=== PATIENT | male | born 1960 | race Native Hawaiian/Other Pacific Islander ===

== ENCOUNTER 2016-12-10 11:33 | Emergency (ER) | payer OTHER ==
[2016-12-10] MEDS ORDERED: BUPIVACAINE 0.5% PF 30 ML VIAL SUBQ STA (12:26)
[2016-12-10] MEDS ORDERED: BUPIVACAINE 0.5% PF 30 ML VIAL ONE (12:30)
--- NOTE | 2016-12-10 12:36 | ED Physician Documentation ---
History of Present Illness - Stated complaint Stated Complaint: LT TOENAIL PX,REDNESS - Chief complaint Chief Complaint: Ext Problem - History obtained from History obtained from: Patient - History of Present Illness Timing: How many weeks ago (several weeks) Pain level max: 4 Pain level now: 3 Improved by: soaking the toe Worsened by: walking - Additonal information Additional information: states L great toe - ingrown toenail with recurrent infections. Review of Systems Constitutional: denies: Fever, Chills Skin: denies: Rash PD PAST MEDICAL HISTORY - Past Medical History Cardiovascular: High cholesterol, Atrial fibrillation - Past Surgical History Past Surgical History: No - Present Medications Home Medications: Ambulatory Orders Medication Instructions Recorded Confirmed Aspirin Chewable [St Zack 1 tab PO DAILY 12/10/16 12/10/16 Aspirin] Atorvastatin [Lipitor] 4 tab PO DAILY 12/10/16 12/10/16 Fexofenadine HCl [Radha Allergy] 60 mg PO DAILY 12/10/16 12/10/16 Fluticasone [Flonase] 1 spray TANYA PRN PRN 12/10/16 12/10/16 Sotalol HCl [Sotalol] 2 tab PO DAILY 12/10/16 12/10/16 - Allergies Allergies/Adverse Reactions: Allergies Allergy/AdvReac Type Severity Reaction Status Date / Time No Known Drug Allergies Allergy Verified 12/10/16 11:40 - Social History Does the pt smoke?: No Smoking Status: Never smoker Does the pt drink ETOH?: Yes Does the pt have substance abuse?: No - Immunizations Immunizations are current?: Yes - POLST Patient has POLST: No PD ED PE NORMAL - Vitals Vital signs reviewed: Yes - General General: Alert and oriented X 3, No acute distress - Extremities Extremities: Other (L great toe - ingrown medial toenail with swelling and pain. ) - Neuro Neuro: Alert and oriented X 3 - Psych Psych: Normal mood, Normal affect Results - Vitals Vitals: Vital Signs - 24 hr 12/10/16 12/10/16 11:36 13:00 Temperature 36.6 C Heart Rate 68 78 Respiratory 15 14 Rate Blood Pressure 134/81 H 128/76 O2 Saturation 96 98 Oxygen O2 Source Room air Procedures - General procedure General procedure: Verbal consent obtained from the patient. The right great toe was anesthetized with 0.5% Marcaine with excellent anesthesia achieved. After this the toe was scrubbed with chlorhexidine, the lateral nail fold was then elevated and the nail removed. Approximately one fourth of the toenail was removed including the nail matrix. There was no purulent material drained. Patient tolerated well. Xeroform dressing applied. PD MEDICAL DECISION MAKING - ED course Complexity details: re-evaluated patient, considered differential, d/w patient, d/w family ED course: Patient is a 56-year-old male who presents to the emergency department with an ingrown right toenail. This was excised and removed. Tolerated well. Warnings of infection and instructions on wound care given at bedside. Also counseled on how to minimize scarring. Patient and family counseled regarding signs and symptoms for which I believe and urgent re-evaluation would be necessary. Patient with good understanding of and agreement to plan and is comfortable going home at this time This document was made in part using voice recognition software. While efforts are made to proofread this document, sound alike and grammatical errors may occur. No evidence of infection Departure - Departure Disposition: 01 Home, Self Care Clinical Impression: Ingrown toenail without infection Condition: Good Instructions: ED Ingrown Toenail Excised, ED Ingrown Toenail No Infec Home Tx Follow-Up: Corey Ray DO [Primary Care Provider] - Within 1 week Comments: Return if you worsen. Keep the wound clean. Change your socks 2-3 times daily when working. Keep the wound covered for the next week. Discharge Date/Time: 12/10/16 13:10
[2016-12-10 13:16] VITALS: BP 128/76
== END 2016-12-10 13:10 | disposition home or self-care (01) ==
LOC: ED 11:33
DX: L60.0 Ingrowing nail (principal); Z79.82 Long term (current) use of aspirin
CPT/HCPCS: 11760; 99283

== ENCOUNTER 2018-04-26 11:48 | Outpatient (CLI) | payer OTHER ==
--- NOTE | 2018-04-26 18:53 | MRI Report ---
Reason: CERVICALGIA Procedure Date: 04/26/2018 Accession Number: [id number] / [id number] Procedure: MRI - Cervical Spine W/O CPT Code: FULL RESULT: EXAM: MRI CERVICAL SPINE WITHOUT CONTRAST EXAM DATE: 04/26/2018 12:26 PM. CLINICAL HISTORY: Cervicalgia. COMPARISONS: MRI cervical spine 06/15/2011. TECHNIQUE: Multiplanar, multisequence T1-weighted and fluid-sensitive sequences of the cervical spine without contrast. Other: None. FINDINGS: Grade 1 retrolisthesis of C4 relative to C5 is present. There is some patchy edema involving the C4 and C5 vertebral bodies towards the right likely diskogenic in nature. These findings are stable. No abnormal T2 signal is present in the cervical spinal cord. C2-C3: No posterior disk protrusion. No stenosis. C3-C4: Posterior bulge of the annulus. Disk/osteophyte complex formation is seen involving the posterior lateral and extend the left foraminal margin of the disk on the right. Left uncovertebral joint spurring is seen. Left facet hypertrophy is present. Left foraminal stenosis is seen no central canal stenosis. C4-C5: Grade 1 retrolisthesis of C4 relative to C5 is present. A posterior protrusion of disk and osteophyte is seen. There is near complete effacement of ventral CSF space. Central canal measures 10-11 mm. Disk/osteophyte complex is seen involving the posterior lateral and foraminal margin of the disk on the right. There is uncovertebral joint spurring on the left. Right foraminal stenosis is present. This is stable. C5-C6: A minimal posterior protrusion of disk is seen. Disk/osteophyte complex formation is seen involving the posterior lateral and foraminal margin of the disk bilaterally. Bilateral foraminal stenosis greater on the left relative to the right is again seen. No central canal stenosis. Loss of disk space height is present. The degree of disk space height loss has increased. The right foraminal stenosis is new. The left foraminal stenosis is stable. C6-C7: A mild posterior disk protrusion is seen. Disk/osteophyte complex formation is seen involving the posterior lateral margin of the disk. Bilateral foraminal narrowing without overt foraminal stenosis is stable. C7-T1: No posterior disk protrusion. IMPRESSION: 1. Progression of degenerative disk disease and right uncovertebral joint spurring at C5-C6 with new right foraminal stenosis present on the current study. 2. The MRI of the cervical spine is otherwise unchanged. 3. Again seen is degenerative disk disease and osteophyte formation at C4-C5 with stable right foraminal stenosis. 4. There is stable left foraminal stenosis at C3-C4 due to facet hypertrophy and uncovertebral joint spurring. 5. Left foraminal stenosis at C5-C6 is stable. 6. No central canal stenosis is present. 7. No abnormal signal is present in the cervical spinal cord. RADIA
== END 2018-04-26 11:49 | disposition home or self-care (01) ==
LOC: DI 11:48
PROVIDERS: ATTEND Physician Assistant
DX: M50.221 Other cervical disc displacement at C4-C5 level (principal); M50.31 Other cervical disc degeneration, high cervical region; M48.02 Spinal stenosis, cervical region; M47.9 Spondylosis, unspecified; M43.12 Spondylolisthesis, cervical region
CPT/HCPCS: 72141

== ENCOUNTER 2023-11-22 14:42 | Outpatient (CLI) | payer OTHER ==
[2023-11-22 15:15] LABS: CREATININE 0.8 mg/dL (0.6-1.3)
[2023-11-22] MEDS ORDERED: GADOTERATE MEGLUMINE 10 MMOL/20 ML VIAL ONE (15:25)
[2023-11-22] MEDS ORDERED: GADOTERATE MEGLUMINE 5 MMOL/10 ML VIAL ONE (15:25)
[2023-11-22] MEDS: GADOTERATE MEGLUMINE 10 MMOL/20 ML VIAL IVP ONE (16:34)
--- NOTE | 2023-11-26 21:04 | MRI Report ---
PROCEDURE: IAC'S W/WO INDICATIONS: AYSMETRICAL HEARING LOSS CONTRAST: CLARISCAN 24.0 ML TECHNIQUE: Noncontrast sagittal T1 spin echo, axial FLAIR, axial gradient echo, axial diffusion and ADC through the brain. Axial thin-slice 3D CISS, coronal balanced GE, axial T1 spin echo with fat saturation thr ough the internal auditory canals. After the administration of contrast, thin slice axial and shane l T1 spin echo with fat saturation through the internal auditory canals, and axial T1 spin echo with fat saturation through the brain. COMPARISON: None. FINDINGS: Image quality: Excellent. Cerebellopontine angles: No cerebellopontine angle masses. Inner ear structures appear normally for med. No suspicious enhancement in the internal auditory canal or along the course of the 7th cranial nerve. CSF spaces: Ventricles are normal in size and shape. No extra-axial fluid collections. Basal ciste rns are patent. Brain: No intracranial bleeds or mass effects. Costello-white matter interface is intact. No abnormal intracranial enhancement. Diffusion weighted images demonstrate no acute ischemic insults. Brainste m appears normal. Normal intravascular flow voids are present. Skull and face: Calvarial marrow signal is normal. Orbits appear normal. Sinuses: Sinuses and mastoids are clear. IMPRESSION: No imaging explanation is found for the patient's presenting symptoms. Specifically, no findings of masses or abnormal enhancement can be found within the internal auditory canals or the ce rebellopontine angle cisterns. Reviewed by: Dennis Romero MD on 11/26/2023 8:03 PM [facility] Approved by: Dennis Romero MD on 11/26/2023 8:03 PM [facility] Station ID: [id number]
== END 2023-11-22 14:43 | disposition home or self-care (01) ==
LOC: LAB 14:42
PROVIDERS: ATTEND Physician Assistant
DX: H90.5 Unspecified sensorineural hearing loss (principal)
CPT/HCPCS: 36415; 70553; 82565; A9575